=== PATIENT | male | born 1940 | race Caucasian/White ===

== ENCOUNTER → 2017-08-04 09:48 | Outpatient (POV) | payer MEDICARE, SELFPAY | PROVIDERS: PCP Family Medicine; Visit Provider Internal Medicine | DX: Z00.00 Encounter for general adult medical examination without abnormal findings (principal) ==

== ENCOUNTER → 2017-08-31 13:15 | Outpatient (POV) | payer MEDICARE, SELFPAY | PROVIDERS: PCP Family Medicine; Visit Provider Specialist | DX: R20.2 Paresthesia of skin (principal); G58.9 Mononeuropathy, unspecified | CPT/HCPCS: 95886; 95909 ==

== ENCOUNTER → 2017-09-07 12:21 | Outpatient (CLI) | payer MEDICARE, SELFPAY ==
--- NOTE | 2017-09-07 12:23 | CT_ITS ---
CT chest wo con HISTORY: Follow-up left-sided pulmonary nodule ITS.REASON: PULMONARY NODULE ORDERING PHYSICIAN: Sea Nichols MD PATIENT AGE: 76 years Technique: Axial images obtained. Sagittal and coronal reformatted images are also generated and reviewed. All CT scans at the facility use one or more dose reduction, viz: automated exposure control; ma/kV adjustment per patient size (including targeted exams where dose is matched to indication; i.e. head); or iterative reconstruction technique. CONTRAST: None COMPARISON: 05/14/2017 FINDINGS: Prior CABG. No mediastinal or hilar mass apparent. Coronary artery calcifications are present. Normal heart size. Partially calcified mitral valve annulus. Centrilobular disease, a calcified granuloma right middle lobe. 6 mm nodule present in the left lower lobe slightly unchanged when compared to the previous exam. Probable fibrotic changes in the lingula. No new nodules evident. There are degenerative changes in the thoracic spine. No effusions or infiltrates. Upper abdominal images show no acute finding. IMPRESSION: 1. Overall stable CT appearance of the chest. No change left lower lobe nodule with fibrotic changes in the lingula. 2. Centrilobular emphysema
== END ==
PROVIDERS: PCP Family Medicine; Visit Provider Internal Medicine
DX: R91.1 Solitary pulmonary nodule (principal)
CPT/HCPCS: 71250

== ENCOUNTER → 2017-12-08 11:24 | Outpatient (POV) | payer MEDICARE, SELFPAY | PROVIDERS: PCP Family Medicine; Visit Provider Internal Medicine | DX: Z00.00 Encounter for general adult medical examination without abnormal findings (principal) ==

== ENCOUNTER → 2017-12-21 09:49 | Outpatient (CLI) | payer MEDICARE, SELFPAY ==
[2017-12-21 10:45] VITALS: PULSE 67; PULSE 70
== END ==
PROVIDERS: PCP Family Medicine; Visit Provider Internal Medicine
DX: R43.9 Unspecified disturbances of smell and taste (principal); J44.9 Chronic obstructive pulmonary disease, unspecified
CPT/HCPCS: 94060; 94640; 94727; 94729

== ENCOUNTER → 2018-06-22 12:58 | Outpatient (POV) | payer MEDICARE, SELFPAY | PROVIDERS: Visit Provider Internal Medicine | DX: Z00.00 Encounter for general adult medical examination without abnormal findings (principal) ==

== ENCOUNTER 2018-08-09 16:47 | Observation (INO) ==
--- NOTE | 2018-08-09 17:20 | Emergency Department Note ---
ED Disposition Clinical Impression: Hypertensive encephalopathy Disposition: Admitted as Observation Condition on Discharge: Good Referrals: Provider,MD Dakota [Referring] - Time of Disposition: 19:32 - Critical Care Critical Care Time: No Attestation: On 08/09/18, the high probability of a clinically significant, sudden or life threatening deterioration of the following system(s) required my full and direct attention, intervention and personal management. The time I documented below is in addition to time spent performing reported procedures but includes the following listed in this critical care notation. Medical Decision Making - Medical Records Medical records reviewed: Yes: I reviewed the patient's medical records. - Cornelio Inquiry Pt receiving controlled substance: No Vital Signs: 08/09/18 16:48 08/09/18 17:13 08/09/18 17:36 Temperature 98.1 F Temperature Source Oral Pulse Rate [Right Apical] 84 82 Respiratory Rate 18 Blood Pressure [Right Arm] 187/50 H 154/71 H 167/89 H Blood Pressure Mean [Right Arm] 95 98 115 Blood Pressure Source [Right Arm] Blood Pressure Position [Right Arm] 02 Sat by Pulse Oximetry 94 L 95 Oxygen Delivery Method Nasal Cannula Nasal Cannula Oxygen Flow Rate (LPM) 3 3 08/09/18 18:00 08/09/18 18:30 Temperature Temperature Source Pulse Rate [Right Apical] 75 69 Respiratory Rate 19 18 Blood Pressure [Right Arm] 167/77 H 173/81 H Blood Pressure Mean [Right Arm] 107 111 Blood Pressure Source [Right Arm] Automatic Cuff Automatic Cuff Blood Pressure Position [Right Arm] Sitting Sitting 02 Sat by Pulse Oximetry 95 96 Oxygen Delivery Method Nasal Cannula Nasal Cannula Oxygen Flow Rate (LPM) 2 2 - Lab Data Lab results reviewed: Yes: I reviewed the patient's lab results. Lab Results 08/09/18 17:30: WBC 6.7, RBC 4.37 L, Hgb 13.0 L, Hct 38.5 L, MCV 87.9, MCH 29.8, MCHC 33.8, RDW 16.2, Plt Count 225, MPV 6.7 L, Neut % (Auto) 85.2 H, Lymph % (Auto) 12.6, [place] % (Auto) 1.9, Eos % (Auto) 0.2, Baso % (Auto) 0.1, Neut # (Auto) 5.7, Lymph # (Auto) 0.8, [place] # (Auto) 0.1, Eos # (Auto) 0.0, Baso # (Auto) 0.0, Total Counted 100, Neutrophils % (Manual) 82 H, Band Neutrophils % 1.0, Lymphocytes % (Manual) 15, Atypical Lymphs % 1.0, Monocytes % (Manual) 1 L, Platelet Estimate Normal, RBC Morphology Normal 08/09/18 17:30: Sodium 138, Potassium 4.5, Chloride 99, Carbon Dioxide 28, Anion Gap 15.5 H, BUN 26 H, Creatinine 1.40 H, Estimated Creat Clear 52, Estimated GFR 49 L, Est GFR ( Amer) 60, Glucose 188 H, Calcium 9.0, Total Bilirubin 0.5, AST 23, ALT 32, Alkaline Phosphatase 53, Troponin I < 0.02, Total Protein 7.9, Albumin 3.7, Globulin 4.2 H, Albumin/Globulin Ratio 0.9 L 08/09/18 17:30: Lactate 2.6 H Result diagrams: 08/09/18 17:30 08/09/18 17:30 Orders (Tests/Meds): ED MEDICATIONS Generic Name Dose Route Start Last Admin Trade Name Freq PRN Reason Stop Dose Admin Carvedilol 6.25 mg 08/09/18 21:00 Coreg 6.25mg Tablet PO 09/08/18 20:59 BID REGINA Discontinued Medications Generic Name Dose Route Start Last Admin Trade Name Freq PRN Reason Stop Dose Admin Hydralazine HCl 20 mg 08/09/18 17:21 08/09/18 17:35 Apresoline 20mg/Ml 1ml Vial IV 08/09/18 17:22 20 mg ONCE ONE Administration ORDERS Category Date Time Status ECG Request by /Nse Stat Y 08/09/18 17:16 Ordered - CT Data ED CT Reviewed: Yes: I have viewed the radiologist's interpretation Preliminary Findings: Normal/NAD - ECG Data Tracing #1 I reviewed this ECG and interpreted as documented below: Normal Sinus Rhythm: Yes (no stemi) Medical Decision Narrative: admit d/w Dr Norton General Adult HPI - General Chief complaint: Headache Stated complaint: Weakness Time Seen by Provider: 08/09/18 17:17 Mode of Arrival: Ambulatory Source of Information: Patient Limitations: No Limitations Description of Symptoms (Recalled from ER Triage Doc. by RN): PT arrived to the ED with c/o intermittent Lynch and confusion for 1-2 weeks. PT states he was at [facility] this mornign and everything was negative. - History of Present Illness HPI narrative: mild to mod off and on confusion and slurring of speech for one week, seen recently at [facility], and ct head nap, +headaches, no emesis, no visual disturbance, no injury - Related Data Home Medications Medication Instructions Recorded Confirmed albuterol sulfate HFA 90 INHALATION 90 Days 09/07/17 06/14/18 mcg/actuation aerosol inhaler glipizide ER 5 mg tablet, extended PO 90 Days 09/07/17 06/14/18 release 24 hr isosorbide mononitrate ER 120 mg PO 90 Days 09/07/17 06/14/18 tablet,extended release 24 hr metformin 500 mg tablet PO 90 Days 09/07/17 06/14/18 metoprolol succinate ER 100 mg PO 90 Days 09/07/17 06/14/18 tablet,extended release 24 hr pantoprazole 40 mg tablet,delayed PO 90 Days 09/07/17 06/14/18 release roflumilast 500 mcg tablet PO 90 Days 09/07/17 06/14/18 rosuvastatin 20 mg tablet PO 90 Days 09/07/17 06/14/18 sitagliptin 100 mg tablet PO 90 Days 09/07/17 06/14/18 tramadol 50 mg tablet PO 30 Days 09/07/17 06/14/18 fluticasone fur. 100 mcg-umeclid INHALATION 90 Days each 06/14/18 06/14/18 62.5 mcg-vilant 25 mcg inhalat.powder ramipril 2.5 mg capsule 5 mg PO 90 Days cap 06/14/18 06/14/18 Allergies Allergy/AdvReac Type Severity Reaction Status Date / Time No Known Allergies Allergy Unverified 06/14/18 09:58 [facility] History - Hepatitis A Screen Drug use history?: No High risk sexual behaviors?: No History of sexually transmitted infection?: No Currently employed?: No Childcare worker?: No Do you have indoor plumbing?: Yes Do you have electricity?: Yes Attestation statement:: This patient has been screened for Hepatitis A risk factors. Medical History: Reports:: Asthma, Chronic Obstructive Pulmonary Disease (COPD), Coronary Artery Disease, Diabetes Mellitus Type 2, Hyperlipidemia, Hypertension, Migraine Other Medical History: Reports: Arthritis, Cataracts, Other Comment: neuropathy Laterality Cases: Bilateral: Tonsillectomy Other Surgeries: Yes: CABG, Cardiac Catheterization, Cardiac Surgery, Coronary Stent - Social History Smoking Status: Former smoker Alcohol Intake: never Alcohol Intake Frequency:: other Substance Use Type: denies use Occupational Status: retired Housing: house Household Members: none - Psychiatric History Expresses thoughts of harming self/others: None Suicide Plan Description: No Plan Family Hx:: Asthma, Coronary Artery Disease, Cancer ROS Obtained: Yes Systems reviewed as appropriate & no additional complaints - Constitutional Constitutional: Denies fever(s) - Eyes Eyes: Denies change in vision - ENT Ears, Nose, Mouth, and Throat: Reports dizziness - Cardiovascular Cardiovascular: Denies chest pain - Respiratory Respiratory: No dyspnea - Gastrointestinal Gastrointestingal: Denies: abdominal pain, vomiting - Musculoskeletal Musculoskeletal: Denies neck pain - Integumentary/Breasts Skin/Breast: Denies rash - Neurologic Neurologic: Reports abnormal speech, Reports confusion, Denies convulsions, Reports dizziness, Denies focal weakness Physical Exam - General General appearance: alert, in no apparent distress - Head Head exam: atraumatic - Eye Eye exam: Present: PERRL, EOMI - ENT ENT exam: Present: normal exam - Neck Neck exam: Present: normal inspection - Chest Chest inspection: Present: normal inspection - Respiratory Respiratory exam: Present: normal lung sounds bilaterally - Cardiovascular Cardiovascular exam: Present: regular rate, normal rhythm - Abdominal Exam Abdominal exam: Present: soft. Absent: tenderness - Extremities Exam Extremities exam: Present: full ROM. Absent: tenderness - Back Exam Back exam: Absent: vertebral tenderness - Neurological Exam Neurological exam: Present: alert, oriented X3, other (filter helper equal, cn 3 to 10 grossly intact) - Psychiatric Psychiatric exam: Present: normal affect, normal mood - Skin Skin exam: Present: warm, dry
[2018-08-09 17:43] LABS: Basophils % 0.1 % (0.1-2.0); Eosinophils % 0.2 % (0.1-12.0); Hematocrit 38.5 % (42.0-52.0); Lymphocytes # 0.8 K/mm3 (0.7-4.5); Lymphocytes % 12.6 % (10-50); Mean Corpuscular HGB Conc 33.8 g/dL (31.8-35.4); Mean Corpuscular Hemoglobin 29.8 pg (27.0-31.2); Mean Corpuscular Volume 87.9 fl (80-94); Mean Platelet Volume 6.7 fl (7.4-10.4); Monocytes # 0.1 K/mm3 (0.1-1.0); Monocytes % 1.9 % (1.7-9.3); Neutrophils # 5.7 K/mm3 (1.8-7.8); Neutrophils % 85.2 % (37.0-80.0); Platelet Count 225 K/mm3 (142-424); Red Blood Count 4.37 M/mm3 (4.60-6.20); Red Cell Distribution Width 16.2 % (11.5-17.5); White Blood Count 6.7 K/mm3 (4.8-10.8)
[2018-08-09 17:54] LABS: Alanine Aminotransferase 32 U/L (12-78); Albumin Level 3.7 gm/dL (3.4-5.0); Albumin/Globulin Ratio 0.9 (1.1-1.8); Alkaline Phosphatase 53 U/L (46-116); Anion Gap 15.5 mEq/L (5-15); Aspartate Amino Transferase 23 U/L (15-37); Bilirubin,Total 0.5 mg/dL (0.2-1.0); Blood Urea Nitrogen 26 mg/dL (7-18); Carbon Dioxide 28 mmol/L (21.0-32.0); Chloride 99 mmol/L (98-107); Globulin 4.2 gm/dl (1.3-3.2); Glucose 188 mg/dL (74-106); Potassium 4.5 mmoL/L (3.5-5.1); Sodium 138 mmol/L (136-145); Total Protein,Serum 7.9 gm/dL (6.4-8.2)
[2018-08-09 18:02] LABS: Lymphocytes % 15 % (10-50); Monocytes % 1 % (2-9); Neutrophils % 82 % (42-76); RBC Morphology Normal; Total Cells Counted 100
--- NOTE | 2018-08-10 07:37 | Pharmacy Consult Notes ---
[facility] Pharmacy VTE Monitoring - Patient Demographics Admission date: 08/09/18 Report Date: 08/10/18 Time: 07:37 Allergies/Adverse Reactions: Patient Allergies No Known Allergies Allergy (Unverified 06/14/18 09:58) Height: 1.88 m Weight: 112.236 kg Patient Problems: Current Active Problems Hypertensive encephalopathy (Acute) - VTE Risk Labs: VTE Related Lab Results Hgb 13.0 g/dL (14.1-18.0) L 08/09/18 17:30 Hct 38.5 % (42.0-52.0) L 08/09/18 17:30 Plt Count 225 K/mm3 (142-424) 08/09/18 17:30 BUN 26 mg/dL (7-18) H 08/09/18 17:30 Creatinine 1.40 mg/dL (0.70-1.30) H 08/09/18 17:30 Estimated Creat Clear 52 mL/min (50-200) 08/09/18 17:30 Was VTE Risk Assessment Performed: Yes VTE Score: 5 VTE Risk Level: Low Risk - Prophylaxis VTE Prophylaxis Ordered?: Yes Types of VTE Prophylaxis: TEDS Knee High Location of Applied Device: Bilateral Lower Extremeties - VTE Diagnosis Confirmed Treatment or plan recommended: Continue Current Treatment
--- NOTE | 2018-08-10 07:59 | H&P/Discharge Summary ---
General - General Admission date:: 08/09/18 Discharge date: 08/10/18 *Admission Date: 08/09/18 *Chief complaint: Headache, Hypertensive *History of present illness: 77-year-old male with history of hypertension, hypercholesterolemia, coronary artery disease status post three-vessel CABG who presented to the ER with severe headache and elevated blood pressure. Initially treated with hydralazine with improvement and then noted to have blood pressure jump back up to systolic greater than 200/100s. Of note Mr. Washington initially presented to [facility] for the same symptoms and concern for stroke due to confusion. Had a workup and found to be negative for any intracranial pathology per patient. Patient was discharged home and came to our ER due to his displeasure with care and persistent headaches. Found to have hypertensive emergency/encephalopathy on admission. Admitted for better blood pressure control. Further questioning elicits that the patient had not taken his blood pressure medication all day, unclear of his adherence to regimen the day before. Does not know his meds offhand, carries a list with him that he did not bring during this visit. Patient states this morning he is feeling much better. Has no headache. Denies chest pain, shortness of breath, edema, abdominal pain, nausea or vomiting. No confusion or altered mental status. Denies any changes in vision. [facility] History I have reviewed the patient's past medical history: Yes Medical History: Reports:: Asthma, Chronic Obstructive Pulmonary Disease (COPD), Coronary Artery Disease, Diabetes Mellitus Type 2, Hyperlipidemia, Hypertension, Migraine Denies:: Cancer, MRSA *Have you ever received a pneumonia vaccine?: Yes *Have you received a flu vaccine this season?: Yes Other Medical History: Reports: Arthritis, Cataracts, Other Laterality Cases: Right: Carpal Tunnel Release, Bilateral: Tonsillectomy Other Surgeries: Yes: CABG, Cardiac Catheterization, Cardiac Surgery, Coronary Stent Amputation: No Fractures: No - *Social History Educational Level: Attended College Smoking Status: Former smoker Tobacco Type: cigarettes # Packs/Day (cigarettes): 3 #Yrs smoked (if former smoker): 45 Smoking End Date: 12/08/2006 Alcohol Intake: never Alcohol Intake Frequency:: other Substance Use Type: denies use *Occupational Status:: retired Housing: house Household Members: none *Travel in the last 8 weeks: None - Psychiatric History Expresses thoughts of harming self/others: None Suicide Plan Description: No Plan Family Hx:: Asthma, Coronary Artery Disease, Cancer Review of Systems - Review of Systems Review of systems:: pertinent systems reviewed and negative unless documented below - *Neurologic Reports abnormal speech, Reports confusion, Reports dizziness, Denies seizure- like activity, Denies localized weakness Exam Vital signs and Labs for Last 24 Hours: Temp Pulse Resp BP Pulse Ox 98.3 F 64 17 165/71 H 99 08/10/18 04:26 08/10/18 06:54 08/10/18 06:54 08/10/18 06:54 08/10/18 06:54 Laboratory Results - last 24 hr 08/09/18 17:30: WBC 6.7, RBC 4.37 L, Hgb 13.0 L, Hct 38.5 L, MCV 87.9, MCH 29.8, MCHC 33.8, RDW 16.2, Plt Count 225, MPV 6.7 L, Neut % (Auto) 85.2 H, Lymph % (Auto) 12.6, [place] % (Auto) 1.9, Eos % (Auto) 0.2, Baso % (Auto) 0.1, Neut # (Auto) 5.7, Lymph # (Auto) 0.8, [place] # (Auto) 0.1, Eos # (Auto) 0.0, Baso # (Auto) 0.0, Total Counted 100, Neutrophils % (Manual) 82 H, Band Neutrophils % 1.0, Lymphocytes % (Manual) 15, Atypical Lymphs % 1.0, Monocytes % (Manual) 1 L, Platelet Estimate Normal, RBC Morphology Normal 08/09/18 17:30: Sodium 138, Potassium 4.5, Chloride 99, Carbon Dioxide 28, Anion Gap 15.5 H, BUN 26 H, Creatinine 1.40 H, Estimated Creat Clear 52, Estimated GFR 49 L, Est GFR ( Amer) 60, Glucose 188 H, Calcium 9.0, Total Bilirubin 0.5, AST 23, ALT 32, Alkaline Phosphatase 53, Troponin I < 0.02, Total Protein 7.9, Albumin 3.7, Globulin 4.2 H, Albumin/Globulin Ratio 0.9 L 08/09/18 17:30: Lactate 2.6 H 08/09/18 21:24: Lactate 2.6 H 08/09/18 21:46: POC Glucose 140 H 08/09/18 23:24: Lactate 2.0 08/10/18 05:26: POC Glucose 117 H I & O for Last 24 hours: Intake & Output 08/07/18 08/08/18 08/09/18 08/10/18 23:59 23:59 23:59 23:59 Intake Total 342 / 342 360 / 360 Output Total 400 / 400 525 / 525 Balance -58 / -58 -165 / -165 Weight 112.236 kg 112.236 kg Microbiology Reports for the Last 24 Hours: Microbiology 08/09/18 22:00 Sputum - Expectorated Sputum Gram Stain - Final - *Routine HEENT Exam Head: Present: normocephalic Eye: Present: EOMI, PERRL ENT: Present: mucous membranes moist - *Routine Neck Exam Present: supple. Absent: lymphadenopathy - Routine Chest/Breast/Axilla Exam Comments: Well-healed sternotomy scar - *Routine Respiratory Exam Present: CTA bilaterally - *Routine Cardiovascular Exam Present: RRR, Normal S1, Normal S2. Absent: murmur - *Routine Abdominal Exam Present: soft, normoactive bowel sounds. Absent: tenderness - *Routine Extremities Exam Present: edema (Trace, MIKAYLA hose in place). Absent: cyanosis, clubbing - *Routine Skin Exam Present: warm. Absent: rash - *Routine Neurological Exam Present: alert, oriented X3 Hospital Course Hospital Course: Admitted to stepdown status on telemetry. Started on carvedilol overnight. Responded well to 6.25 mg with additional dosage given for a total of 12-1/2 mg last night. Continue carvedilol 12.5 mg twice daily. Restarted home meds of ramipril and isosorbide the following morning. Monitored patient's blood pressure to make sure there were no episodes of hypotension. Patient tolerated regimen well. Blood pressure controlled less than 160/90 at time of discharge. Patient tolerating regular diet, ambulating independently, mentating appropriately. Medically stable for discharge home. Plan to follow-up with primary care physician in the next 2-3 days to review blood pressure regimen and reassess blood pressure Results Labs on day of discharge: Labs from last 24 hours 08/10/18 08/09/18 08/09/18 05:26 23:24 21:46 WBC RBC Hgb Hct MCV MCH MCHC RDW Plt Count MPV Neut % (Auto) Lymph % (Auto) [place] % (Auto) Eos % (Auto) Baso % (Auto) Neut # (Auto) Lymph # (Auto) [place] # (Auto) Eos # (Auto) Baso # (Auto) Total Counted Neutrophils % (Manual) Band Neutrophils % Lymphocytes % (Manual) Atypical Lymphs % Monocytes % (Manual) Platelet Estimate RBC Morphology Sodium Potassium Chloride Carbon Dioxide Anion Gap BUN Creatinine Estimated Creat Clear Estimated GFR Est GFR ( Amer) Glucose POC Glucose 117 H 140 H Lactate 2.0 Calcium Total Bilirubin AST ALT Alkaline Phosphatase Troponin I Total Protein Albumin Globulin Albumin/Globulin Ratio 08/09/18 08/09/18 08/09/18 21:24 17:30 17:30 WBC RBC Hgb Hct MCV MCH MCHC RDW Plt Count MPV Neut % (Auto) Lymph % (Auto) [place] % (Auto) Eos % (Auto) Baso % (Auto) Neut # (Auto) Lymph # (Auto) [place] # (Auto) Eos # (Auto) Baso # (Auto) Total Counted Neutrophils % (Manual) Band Neutrophils % Lymphocytes % (Manual) Atypical Lymphs % Monocytes % (Manual) Platelet Estimate RBC Morphology Sodium 138 Potassium 4.5 Chloride 99 Carbon Dioxide 28 Anion Gap 15.5 H BUN 26 H Creatinine 1.40 H Estimated Creat Clear 52 Estimated GFR 49 L Est GFR ( Amer) 60 Glucose 188 H POC Glucose Lactate 2.6 H 2.6 H Calcium 9.0 Total Bilirubin 0.5 AST 23 ALT 32 Alkaline Phosphatase 53 Troponin I < 0.02 Total Protein 7.9 Albumin 3.7 Globulin 4.2 H Albumin/Globulin Ratio 0.9 L 08/09/18 17:30 WBC 6.7 RBC 4.37 L Hgb 13.0 L Hct 38.5 L MCV 87.9 MCH 29.8 MCHC 33.8 RDW 16.2 Plt Count 225 MPV 6.7 L Neut % (Auto) 85.2 H Lymph % (Auto) 12.6 [place] % (Auto) 1.9 Eos % (Auto) 0.2 Baso % (Auto) 0.1 Neut # (Auto) 5.7 Lymph # (Auto) 0.8 [place] # (Auto) 0.1 Eos # (Auto) 0.0 Baso # (Auto) 0.0 Total Counted 100 Neutrophils % (Manual) 82 H Band Neutrophils % 1.0 Lymphocytes % (Manual) 15 Atypical Lymphs % 1.0 Monocytes % (Manual) 1 L Platelet Estimate Normal RBC Morphology Normal Sodium Potassium Chloride Carbon Dioxide Anion Gap BUN Creatinine Estimated Creat Clear Estimated GFR Est GFR ( Amer) Glucose POC Glucose Lactate Calcium Total Bilirubin AST ALT Alkaline Phosphatase Troponin I Total Protein Albumin Globulin Albumin/Globulin Ratio DS: Diagnosis - Discharge Diagnosis (1) Obesity (BMI 30.0-34.9) Status: Chronic Problem details: Complicates all aspects of care (2) Coronary artery disease Status: Chronic Problem details: Restarted patient's Plavix, isosorbide, KATHLEEN inhibitor, beta-neha. On goal-directed therapy. (3) COPD (chronic obstructive pulmonary disease) Status: Chronic Problem details: Unknown at initial admission, patient did not know his medications off hand nor had a med list. No respiratory distress during visit. Restart home regimen at discharge (4) GERD (gastroesophageal reflux disease) Status: Chronic Problem details: Continued patient's home pantoprazole (5) Hypertensive encephalopathy Status: Acute Problem details: Continue home ramipril and isosorbide. Added carvedilol 12.5 mg twice daily to patient's regimen. Symptoms resolved prior to discharge. No focal neurologic deficits (6) Type 2 diabetes mellitus Status: Chronic Problem details: Due to uncertainty of patient's home regimen as he could not recall. Started on sliding scale insulin with fingersticks before meals at bedtime during admission Discharge Medications - Medications for Discharge Home Medication List at Discharge: New Carvedilol [Coreg 12.5mg Tablet] 12.5 mg PO BID 30 Days #60 tablet Ramipril [Altace 5mg capsule] 5 mg PO BID 30 Days #60 capsule Continue tramadol 50 mg tablet 50 mg PO TID 30 Days Albuterol Sulfate [Albuterol HFA Inhaler] 2 puffs INHALATION Q6HP PRN PRN Reason: Shortness Of Breath Clopidogrel Bisulfate [Plavix 75mg Tab] 75 mg PO DAILY Isosorbide Mononitrate [Isosorbide Mononitrate ER] 120 mg PO DAILY Metformin HCl 250 mg PO BID Sitagliptin Phosphate [Januvia 100mg tablet] 100 mg PO DAILY Rosuvastatin Calcium 20 mg PO HS Icosapent Ethyl [Vascepa] 2 gm PO BID Furosemide [Furosemide 20mg Tab] 20 mg PO DAILYP PRN PRN Reason: SWELLING Aspirin [Aspirin 81mg EC Tab] 81 mg PO DAILY Roflumilast [Daliresp] 500 mcg PO DAILY Discontinued Pantoprazole Sodium [Protonix 40mg tablet] 40 mg PO DAILY Ramipril [Altace 2.5mg capsule] 2.5 mg PO DAILY Disposition Disposition: Home, Self-Care
== END 2018-08-10 14:11 | disposition home or self-care (01) ==
LOC: ER 16:47 → 2ND 19:41 → INTOOBSV 20:07 → 2ND 20:08
PROVIDERS: ADMIT Internal Medicine Adolescent Medicine; ATTEND Internal Medicine Adolescent Medicine
CPT/HCPCS: 36415; 70450; 80053; 82962; 83605; 84484; 85007; 85025; 87070; 87077; 87184; 87205; 93005; 96374; 99284; G0378

== ENCOUNTER → 2018-11-09 12:51 | Outpatient (CLI) | payer MEDICARE, SELFPAY ==
--- NOTE | 2018-11-09 12:55 | CT_ITS ---
CT lung screening EXAM: CT LUNG LOW DOSE WO CONTRAST HISTORY: 84 pack-year smoking history asymptomatic for lung cancer ITS.REASON: HX TOBACCO USE ORDERING PHYSICIAN: Sea Nichols MD PATIENT AGE: 78 years COMPARISON: 09/07/2017 TECHNIQUE: The exam was performed on a GE Light Speed [address] scanner using 2.90 mGy CTDI. A low dose helical CT CHEST was performed on a multi-detector scanner. All CT scans at the facility use one or more dose reduction, viz: automated exposure control, ma/kV adjustment per patient size (including targeted exams where dose is matched to indication, i.e. head), or iterative reconstruction technique. The LDCT was performed in a facility that meets the criteria for the screening program. Data regarding this exam was submitted to ACR which is an approved registry. The order for this exam indicates that it came as a result of a lung cancer screening counseling shard decision-making visit that included all the elements required of such a visit including smoking cessation. The radiologist interpreting this exam meets the CMS criteria for the LDCT lung cancer screening program. The exam is reported using the Lung-RADS classification scale and reported to the ACR registry. NOTE: This study was performed for the specific purposes of lung cancer screening and is not an alternative to diagnostic chest CT. RADIATION DOSE: CTDI vol(CT dose Index-volume) = 2.90mG DLP (Dose Length Product) = 116.72 mGcm FINDINGS: Prior CABG with extensive coronary artery calcification and aortic valve calcification as well as calcification of the mitral valve annulus. Centrilobular emphysema with COPD and evidence of old granulomatous disease. 5 mm nodular opacity right lower lobe axial image #58 not readily apparent on the previous exam have a somewhat bilobular appearance. Previously there was a spiculated area of consolidation in the superior central right lower lobe which has resolved. Chronic consolidation/volume loss noted within the lingula. 6 mm noncalcified nodule left apex axial image #18. There is diffuse mild prominence of the interstitium consistent with smoking-related lung disease. IMPRESSION: 1. Lung RADS Category: 3, probably benign, there are 2 nodules one in the right lower lobe at 5 mm and one in the left upper lobe a 6 mm. Suggest 6 month follow-up 2. Other findings: Centrilobular emphysema, COPD, coronary artery disease with aortic valve and mitral valve annular calcification RECOMMENDATIONS: [address] follow-up
== END ==
PROVIDERS: PCP Family Medicine; Visit Provider Internal Medicine
DX: Z12.2 Encounter for screening for malignant neoplasm of respiratory organs (principal); Z87.891 Personal history of nicotine dependence

== ENCOUNTER → 2019-03-01 13:33 | Outpatient (POV) | payer MEDICARE, SELFPAY | PROVIDERS: Visit Provider Internal Medicine | DX: Z00.00 Encounter for general adult medical examination without abnormal findings (principal) ==

== ENCOUNTER → 2019-06-03 13:45 | Outpatient (CLI) | payer MEDICARE, SELFPAY ==
--- NOTE | 2019-06-03 13:53 | CT_ITS ---
PROCEDURE: CT CHEST WO CON CLINICAL INDICATION: PULMONARY NODULE Follow-up pulmonary nodule COMPARISON: CT CHEST WO CONTRAST from 05/14/[address] chest wo con from 09/07/[address] lung screening from 11/09/2018 TECHNIQUE: Axial images obtained with sagittal and coronal reformats. All CT scans at the facility use one or more dose reduction, viz: automated exposure control, ma/kV adjustment per patient size (including targeted exams where dose is matched to indication, i.e. head), or iterative reconstruction technique. FINDINGS: Prior CABG. There is extensive coronary artery calcification. Mitral valve annular calcification also noted. Pericardial calcification noted inferiorly. There are changes of centrilobular emphysema. Calcified granuloma is present in the right middle lobe. No change in the 5 mm nodular opacity in the right lower lobe. No change in the 5 mm left apical nodule. There is some chronic volume loss within the lingula. No central obstructing lesions are evident. No new pulmonary nodules. IMPRESSION: 1. No change in the small bilateral pulmonary nodules with centrilobular emphysema. Recommend routine annual screening LD CT. 2. Prior CABG with coronary artery, mitral valve annular, and pericardial calcifications. 3. Nonspecific low-density changes in the upper aspect of the right kidney. Ultrasound may provide further evaluation Dictated by: Kunal Rich MD 06/07/2019 06:44 Electronically signed by Kunal Rich MD in [facility] 06/07/2019 06:44
== END ==
PROVIDERS: PCP Family Medicine; Visit Provider Internal Medicine
DX: R91.8 Other nonspecific abnormal finding of lung field (principal)
CPT/HCPCS: 71250

== ENCOUNTER → 2021-01-08 15:28 | Outpatient (CLI) | payer MEDICARE, SELFPAY ==
--- NOTE | 2021-01-08 15:34 | XR_ITS ---
PROCEDURE: XR FOOT WT BEARING RT 3V CLINICAL INDICATION: PAIN COMPARISON: No exams were available for comparison FINDINGS: No fracture or dislocation. No lytic or blastic change. There is normal mineralization. The joint spaces are well-preserved. No significant degenerative/arthritic changes. No erosive changes evident. Other findings:There is flexion of the 2nd through 3rd toes. Prominent hypertrophic change at the calcaneus at the plantar fascia insertion. Hypertrophy of the navicular proximally and anteriorly. IMPRESSION: Bony hypertrophic changes as described above with flexion of the 2nd through 4th toes Dictated by: Kunal Rich MD 01/08/2021 17:01 Kunal Rich MD in [facility] 01/08/2021 17:01
--- NOTE | 2021-01-08 15:34 | XR_ITS ---
PROCEDURE: XR FOOT WT BEARING LT 3V CLINICAL INDICATION: PAIN COMPARISON: No exams were available for comparison FINDINGS: No fracture or dislocation. No lytic or blastic change. There is normal mineralization. Bony hypertrophy noted at the inferior surface of the calcaneus at the plantar fascia insertion. There is some minimal calcification of the plantar fascia centrally. Minimal spurring noted along the dorsal aspect of the navicular. Flexion deformity involves the 2nd and 3rd toes. Other findings:On the lateral view there is suggestion erosive change of the distal phalanx which may be the 2nd toe. This does raise the question of osteomyelitis. IMPRESSION: There is erosive change of the distal phalanx of what appears to be the 2nd toe as seen on the lateral view. Please correlate as the patient's area of pain and ulceration. Chronic changes as described above. Dictated by: Kunal Rich MD 01/08/2021 17:00 Kunal Rich MD in [facility] 01/08/2021 17:00
== END ==
PROVIDERS: PCP Family Medicine; Visit Provider Nurse Practitioner
DX: Z51.89 Encounter for other specified aftercare; M79.672 Pain in left foot; M79.671 Pain in right foot
CPT/HCPCS: 73630

== ENCOUNTER → 2021-02-04 16:40 | Outpatient (CLI) | payer MEDICARE, SELFPAY | PROVIDERS: Visit Provider Nurse Practitioner | DX: L98.9 Disorder of the skin and subcutaneous tissue, unspecified (principal) | CPT/HCPCS: 87070; 87077; 87186; 87205 ==

== ENCOUNTER → 2021-02-06 11:17 | Outpatient (CLI) | payer MEDICARE, SELFPAY ==
--- NOTE | 2021-02-06 11:17 | CT_ITS ---
PROCEDURE INFORMATION: Exam: CT Left Lower Extremity Without Contrast, Foot Exam date and time: 02/06/2021 11:17 AM Age: 80 years old Clinical indication: Other: Ulver; Additional info: 2nd toe ulcer, osteomyelitis TECHNIQUE: Imaging protocol: CT of the Left lower extremity without contrast was performed. Exam focused on the foot. 3D rendering (Not supervised by radiologist): MIP and/or 3D reconstructed images were created by the technologist. Radiation optimization: All CT scans at this facility use at least one of these dose optimization techniques: automated exposure control; mA and/or kV adjustment per patient size (includes targeted exams where dose is matched to clinical indication); or iterative reconstruction. COMPARISON: CR XR FOOT WT BEARING LT 3V 01/08/2021 3:35 PM FINDINGS: Bones/joints: The distal tuft of the second toe distal phalanx is truncated, which may represent osteomyelitis. A prominent flexion deformity involves the second toe with more mild flexion deformities involving the third and fourth toes. There is moderate primary osteoarthritis of the second tarsometatarsal joint. A moderate-sized plantar calcaneal enthesophyte is present. A small dorsal calcaneal enthesophyte is present. Soft tissues: The soft tissues involving the distal second toe are irregular suggesting ulceration. Bandaging material is in place. There is no soft tissue gas or discrete fluid collection to suggest an abscess. Vasculature: Arteriosclerosis is moderate. IMPRESSION: 1. Truncation of the second toe distal tuft potentially representing osteomyelitis. 2. 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
== END ==
PROVIDERS: PCP Family Medicine; Visit Provider Nurse Practitioner
DX: L97.502 Non-pressure chronic ulcer of other part of unspecified foot with fat layer exposed; Z79.84 Long term (current) use of oral hypoglycemic drugs; E11.621 Type 2 diabetes mellitus with foot ulcer
CPT/HCPCS: 73700

== ENCOUNTER → 2021-02-11 15:30 | Outpatient (CLI) | payer MEDICARE, SELFPAY ==
--- NOTE | 2021-02-11 15:37 | US_ITS ---
APPROVED REPORT Exam Type: Ankle to Brachial Index State Inspector: Rafaela Andre CRT Indications Claudication: Bilaterally Non-healing Ulcer: Rest Pain: Bilaterally History of Smoking CAD Left 2nd digit ulcer with amputation scheduled soon. Risk Factors Hypertension Hyperlipidemia Diabetes History of Smoking CABG Pressures/Indices Right Indices Left Indices Brachial 235.00 mmHg Brachial 211.00 mmHg Low Thigh 215.00 mmHg 0.91 Low Thigh 208.00 mmHg 0.89 Calf 227.00 mmHg 0.97 Calf Ankle(PT) 218.00 mmHg 0.93 Ankle(PT) 204.00 mmHg 0.87 Ankle(DP) 214.00 mmHg 0.91 Ankle(DP) 184.00 mmHg 0.78 Digit 142.00 mmHg 0.60 Digit 139.00 mmHg 0.59 Findings RT STEFANO=0.93 LT STEFANO=0.87 RT TBI=0.60 LT TBI=0.59 Normal pulses Abnormal waveforms left ankle Conclusion RT STEFANO=0.93 LT STEFANO=0.87 RT TBI=0.60 LT TBI=0.59 Normal pulses Abnormal waveforms left ankle Mild left arterial disease Electronically signed by : Kunal Rich MD 02/12/2021 09:31:40
--- NOTE | 2021-02-11 16:28 | XR_ITS ---
PROCEDURE INFORMATION: Exam: XR Chest Exam date and time: 02/11/2021 4:28 PM Age: 80 years old Clinical indication: Shortness of breath; Additional info: SOB TECHNIQUE: Imaging protocol: XR of the chest. Views: 2 views. COMPARISON: CT CHEST WO CON 06/03/2019 1:57 PM FINDINGS: Lungs: There is new patchy airspace disease in the lower lobes, not present on the previous CT from 06/03/2019. The upper lungs remain well aerated. Lateral view shows chronic flattening of the diaphragms, suggesting history of obstructive lung disease. Pleural spaces: Unremarkable. No significant pleural effusion. No pneumothorax. Heart/Mediastinum: The cardiac silhouette is normal. Mediastinal surgical clips. Vasculature: Calcified plaques in the aortic arch. Bones/joints: Sternotomy wires. 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 Soft tissues: Question focal posterior lower back soft tissue swelling or mass seen on lateral series 3, correlate clinically. IMPRESSION: 1. New patchy bilateral lower pulmonary airspace disease, correlate for pneumonia or edema. 2. Question 10 cm mass or focal soft tissue swelling in the posterior lower back projected superficial to the lower thoracic spine on lateral image 3, versus artifact from rotation, correlate clinically. 3. Additional nonemergency and chronic findings as above.
[2021-02-11 16:51] LABS: Basophils # 0.1 K/mm3 (0-0.2); Basophils % 0.7 % (0.1-2.0); Eosinophils # 0.4 K/mm3 (0.0-0.4); Eosinophils % 4.3 % (0.1-12.0); Hematocrit 40.6 % (42.0-52.0); Hemoglobin 13.2 g/dL (14.1-18.0); Lymphocytes # 2.3 K/mm3 (0.7-4.5); Lymphocytes % 23.4 % (10-50); Mean Corpuscular HGB Conc 32.5 g/dL (31.8-35.4); Mean Corpuscular Volume 95.4 fl (80-94); Mean Platelet Volume 7.6 fl (7.4-10.4); Monocytes # 0.7 K/mm3 (0.1-1.0); Monocytes % 7.4 % (1.7-9.3); Neutrophils # 6.2 K/mm3 (1.8-7.8); Neutrophils % 64.3 % (37.0-80.0); Platelet Count 190 K/mm3 (142-424); Red Blood Count 4.25 M/mm3 (4.60-6.20); Red Cell Distribution Width 16.3 % (11.5-17.5); White Blood Count 9.7 K/mm3 (4.8-10.8)
--- NOTE | 2021-02-11 17:07 | ECG_ITS ---
APPROVED REPORT Exam: Resting ECG HR:68 bpm ECG Measurements Heart Rate 68 AXES IA 212 P QRSd 152 QRS 104 QT 440 T -2 QTc 467 Conclusion Sinus rhythm with sinus arrhythmia with 1st degree AV block Rightward axis Nonspecific intraventricular block Abnormal ECG Electronically signed by : Zaid Carranza MD 02/11/2021 21:18:32
[2021-02-11 17:19] LABS: Erythrocyte Sedimentation Rate 26 mm/hr (0-20)
[2021-02-11 17:31] LABS: Alanine Aminotransferase 25 U/L (12-78); Albumin Level 4.1 g/dl (3.5-5.0); Albumin/Globulin Ratio 1.5 (1.1-1.8); Alkaline Phosphatase 69 U/L (38-126); Anion Gap 13.3 mEq/L (5-15); Aspartate Amino Transferase 38 U/L (17-59); Bilirubin,Total 0.6 mg/dl (0.2-1.3); Blood Urea Nitrogen 22 mg/dl (9-20); Calcium 9.1 mg/dl (8.4-10.2); Carbon Dioxide 28 mmol/L (22.0-30.0); Chloride 102 mmol/L (98-107); Estimated Glomerular Filt Rate 58 ml/min (>60); GFR (African American) 71 ML/MIN (>60); Globulin 2.8 g/dL (1.3-3.2); Glucose 190 mg/dl (74-100); Potassium 4.3 mmoL/L (3.5-5.1); Sodium 139 mmol/L (136-145); Total Protein,Serum 6.9 g/dl (6.3-8.2)
[2021-02-11 23:17] LABS: Hemoglobin A1C 6.5 % (4.0-6.0)
== END ==
PROVIDERS: PCP Family Medicine; Visit Provider Podiatrist
DX: Z01.818 Encounter for other preprocedural examination (principal); E11.621 Type 2 diabetes mellitus with foot ulcer; Z11.52 Encounter for screening for COVID-19; M86.9 Osteomyelitis, unspecified; R09.89 Other specified symptoms and signs involving the circulatory and respiratory systems; Z79.84 Long term (current) use of oral hypoglycemic drugs; M79.675 Pain in left toe(s)
CPT/HCPCS: 36415; 71046; 80053; 83036; 85025; 85651; 86140; 93005; 93923; C9803; U0003; U0005